=== PATIENT | male | born 1995 | race African-American/Black ===

== ENCOUNTER 2018-08-05 18:44 | Emergency (ER) | payer OTHER ==
[2018-08-05 19:10] VITALS: BP 145/70
--- NOTE | 2018-08-05 19:30 | UC ---
Lower Extremity/Ankle HPI - HPI Summary HPI Summary: Playing basketball yesterday and came down hard on the left heel. Ongoing pain with bruising. Able to walk on it. - History of Current Complaint Chief Complaint: UCLowerExtremity Stated Complaint: LT FOOT INJURY-SPORTS RELATED Hx Obtained From: Patient Onset/Duration: Sudden Onset, Lasting Days - 1, Still Present Severity Initially: Severe Severity Currently: Severe Pain Intensity: 9 Aggravating Factor(s): Standing, Ambulation Alleviating Factor(s): Rest, Elevation Able to Bear Weight: Yes - Allergies/Home Medications Allergies/Adverse Reactions: Allergies Allergy/AdvReac Type Severity Reaction Status Date / Time No Known Allergies Allergy Verified 08/05/18 19:02 Home Medications: Home Medications Albuterol HFA INHALER* [Ventolin HFA Inhaler*] PRN 08/05/18 [History] Ibuprofen TAB* [Advil TAB*] 400 mg PO Q6H PRN 08/05/18 [History Confirmed ] PMH/Surg Hx/FS Hx/Imm Hx Previously Healthy: Yes - Surgical History Surgical History: Yes Surgery Procedure, Year, and Place: WISDOM TEETH EXTRACTIONS - Family History Known Family History: Negative: Cardiac Disease, Hypertension, Diabetes - Social History Occupation: Student Lives: Dormitory/Roommates Alcohol Use: Occasionally Substance Use Type: None Smoking Status (MU): Never Smoked Tobacco Review of Systems All Other Systems Reviewed And Are Negative: Yes Musculoskeletal: Positive: Arthralgia - left heel Is Patient Immunocompromised?: Yes Physical Exam Triage Information Reviewed: Yes Appearance: Well-Appearing, No Pain Distress - at rest, Well-Nourished Vital Signs: Initial Vital Signs Temp 98.2 F 08/05/18 19:04 Pulse 79 08/05/18 19:04 Resp 20 08/05/18 19:04 BP 145/70 08/05/18 19:04 Pulse Ox 99 08/05/18 19:04 Vital Signs Reviewed: Yes Neck exam: Normal Respiratory Exam: Normal Cardiovascular Exam: Normal Musculoskeletal: Positive: ROM Limited @ - left foot, Other: - tender over the left calcaneus Neurological Exam: Normal Psychological Exam: Normal Skin: Positive: Other - Bruising over the planter left foot. Diagnostics - Radiology No standard instances Radiology Interpretation Completed By: ED Physician Summary of Radiographic Findings: No fracture. Lower Extremity Course/Dx - Differential Dx/Diagnosis Differential Diagnosis/HQI/PQRI: Contusion, Fracture (Closed), Sprain Provider Diagnoses: Contusion left foot. Discharge - Sign-Out/Discharge Documenting (check all that apply): Patient Departure All imaging exams completed and their final reports reviewed: No - Discharge Plan Condition: Stable Disposition: HOME Patient Education Materials: Foot Contusion (ED), Crutch Instructions (ED) Referrals: No Primary Care Phys,NOPCP [Primary Care Provider] - - Billing Disposition and Condition Condition: STABLE Disposition: Home
--- NOTE | 2018-08-06 08:58 | UC ---
- Progress Note Progress Note: Patient Name: ERIS SANTILLAN Medical Record#: [id number] Ordering Physician: Adam Person MD Acct.#: [id number] : 1995 Age: 22 Sex: M Location: [facility] Exam Date: 08/05/181919 ADM Status: DEP ER Order Information: FOOT LEFT 3+ VWS Accession Number: [id number] CPT: 65074 INDICATION: Plantar, left hindfoot pain after injury COMPARISON: None. TECHNIQUE: 3 views of the left foot were obtained. FINDINGS: Along the inferior lateral margin of the cuboid bone there is a thin linear 3 mm long bony focus that is well-corticated. There is no definite donor site. The bones are otherwise well corticated and appropriately aligned. IMPRESSION: QUESTIONABLE AVULSION FRACTURE ALONG THE LATERAL AND INFERIOR MARGIN OF THE CUBOID BONE. If the patient's symptoms persist, follow-up imaging is recommended. R2 Preliminary Imaging Read MINOR DISCREPANCY <Electronically signed by Alf Cook MD in OV> 08/06/18731 Dictated By: Alf Cook MD Dictated Date/Time: 08/06/18731 Transcribed Date/Time: 08/06/18729 Copy to: CC:Adam Person MD; No Primary Care Phys,NOPCP Imaging - [facility] [address] [address] ph ([phone]) ph ([phone]) ph ([phone]) This report is only to be considered final once signed by the Provider(s) as displayed in the "<Electronically Signed by >" field (s). Absence of a signature indicates the report is in a draft status and still needs to be finalized. In the event this document was created by someone other than the signing Provider, the individual initiating the document will be listed in the "Entered by:" or "Dictated by:" carter. 1 of 1 RN to call pt - update result referral to Dr. Stafford Discharge - Sign-Out/Discharge Documenting (check all that apply): Post-Discharge Follow Up All imaging exams completed and their final reports reviewed: Yes - Discharge Plan Condition: Stable Disposition: HOME Patient Education Materials: Crutch Instructions (ED), Foot Contusion (ED) Forms: *School Release Referrals: No Primary Care Phys,NOPCP [Primary Care Provider] - - Billing Disposition and Condition Condition: STABLE Disposition: Home
== END 2018-08-05 20:13 | disposition home or self-care (01) ==
LOC: UCCORT 18:44
DX: S90.32XA Contusion of left foot, initial encounter (principal); X58.XXXA Exposure to other specified factors, initial encounter; Y93.67 Activity, basketball; Y92.9 Unspecified place or not applicable
CPT/HCPCS: 99202; G0463